=== PATIENT | female | born 1930 | race Two or more races ===

== ENCOUNTER 2017-08-20 07:25 | Outpatient (CLI) | payer OTHER ==
[~2017-08-20 07:25] MED LIST: ANTIVERT12.5 MG; CALTRATE-600600 MG PO; CARAFATE1 G; CITALOPRAM HBR20 MG; FORADIL12 MCG; MUCINEX600 MG; PREDNISOLONE5 MG PO; SEROQUEL50 MG
== END 2017-08-20 07:56 | disposition home or self-care (01) ==
LOC: MRI 07:25
DX: M05.79 Rheumatoid arthritis with rheumatoid factor of multiple sites without organ or systems involvement (principal); R51 Headache
CPT/HCPCS: 70553; A9579

== ENCOUNTER 2017-08-20 07:29 | Outpatient (CLI) | payer OTHER | END 2017-08-20 07:58 | disposition home or self-care (01) | LOC: TOM 07:29 | DX: M05.79 Rheumatoid arthritis with rheumatoid factor of multiple sites without organ or systems involvement (principal); R10.32 Left lower quadrant pain ==

== ENCOUNTER 2017-12-11 09:35 | Emergency (ER) | payer OTHER ==
[~2017-12-11] VITALS: Ht 160 cm; Wt 50.8 kg
[2017-12-11] MEDS ORDERED: NEURONTIN300 MG (10:07)
== END 2017-12-11 12:01 | disposition home or self-care (01) ==
LOC: ER 09:35
DX: R10.84 Generalized abdominal pain (principal); N39.0 Urinary tract infection, site not specified

== ENCOUNTER 2018-01-29 07:38 | Outpatient (CLI) | payer OTHER ==
[~2018-01-29 07:38] MED LIST changes: +NEURONTIN300 MG
== END 2018-01-29 07:43 | disposition home or self-care (01) ==
LOC: SONOGRAMA 07:38 → MAMO-SONO 08:15
DX: K82.8 Other specified diseases of gallbladder (principal); R10.9 Unspecified abdominal pain

== ENCOUNTER → 2018-03-26 | Outpatient (CLI) | payer OTHER | END | disposition home or self-care (01) | LOC: RX STUDY 09:35 | DX: K21.9 Gastro-esophageal reflux disease without esophagitis (principal) ==

== ENCOUNTER 2018-04-28 08:12 | Outpatient (CLI) | payer OTHER | END 2018-04-28 08:35 | disposition home or self-care (01) | LOC: MRI 08:12 | DX: K80.80 Other cholelithiasis without obstruction (principal); K80.50 Calculus of bile duct without cholangitis or cholecystitis without obstruction | CPT/HCPCS: 74181 ==

== ENCOUNTER 2018-07-22 10:15 | Day surgery (SDC) | payer OTHER | END 2018-07-22 14:55 | disposition home or self-care (01) | LOC: AMB-ENDOS 10:15 | DX: K80.50 Calculus of bile duct without cholangitis or cholecystitis without obstruction (principal) ==

== ENCOUNTER 2018-08-11 09:23 | Outpatient (CLI) | payer OTHER | END 2018-08-11 09:38 | disposition home or self-care (01) | LOC: MAMO-SONO 09:23 | DX: Z12.31 Encounter for screening mammogram for malignant neoplasm of breast (principal); Z87.898 Personal history of other specified conditions; N60.11 Diffuse cystic mastopathy of right breast; N60.12 Diffuse cystic mastopathy of left breast ==

== ENCOUNTER → 2018-09-29 | Emergency (ER) | payer OTHER ==
[~2018-09-29] VITALS: Ht 162.6 cm; Wt 47.2 kg
== END | disposition left against medical advice (07) ==
LOC: ER 07:50
DX: Z53.20 Procedure and treatment not carried out because of patient's decision for unspecified reasons (principal)

== ENCOUNTER 2018-12-21 07:39 | Outpatient (CLI) | payer OTHER | END 2018-12-21 07:49 | disposition home or self-care (01) | LOC: SONOGRAMA 07:39 → MAMO-SONO 07:45 → SONOGRAMA 07:49 | DX: N60.11 Diffuse cystic mastopathy of right breast (principal); N60.12 Diffuse cystic mastopathy of left breast; Z12.31 Encounter for screening mammogram for malignant neoplasm of breast ==

== ENCOUNTER 2019-03-15 09:23 | Outpatient (CLI) | payer OTHER | END 2019-03-15 09:24 | disposition home or self-care (01) | LOC: RAD 09:23 | DX: M05.79 Rheumatoid arthritis with rheumatoid factor of multiple sites without organ or systems involvement (principal) ==

== ENCOUNTER 2019-03-22 13:25 | Emergency (ER) | payer OTHER ==
[~2019-03-22] VITALS: Ht 160 cm; Wt 49.9 kg
[2019-03-22] MEDS ORDERED: METFORMIN HCL500 MG (14:15)
== END 2019-03-22 22:35 | disposition home or self-care (01) ==
LOC: ER 13:25
DX: I70.292 Other atherosclerosis of native arteries of extremities, left leg (principal)

== ENCOUNTER 2019-03-31 12:09 | Inpatient (IN) | payer OTHER ==
[~2019-03-31] VITALS: Ht 160 cm; Wt 49.9 kg
[~2019-03-31 12:09] MED LIST changes: +METFORMIN HCL500 MG
--- NOTE | 2019-03-31 12:27 | NUR ---
SE RECIBE AL PACIENTE ORIENTADO Y ALERTA EN ILA JEOVANNY ESFERAS. PACIENTE REFIERE QUE VIENE POR DOLOR EN EL SENAIT. PACIENTE REFIERE QUE TIENE EL DEDO DEL PIE COLOR RISHI. PACIENTE REFIERE QUE DANIEL DE SERIA QUIEN LA ATENDERIA POR ORDEN DE BRIANNA. RECUR. FAVOR DE NOTIFICAR AL MISMO.
--- NOTE | 2019-03-31 16:00 | NUR ---
PTE ES EVAPUADA POR MD,SE ORIENTA SOBRE ORDEN MEDICA,SE TESSIE MUESTRAS Y SE ENVIAN A LABORATORIO,SE CANALIZA Y COLOCA H/L PATENTE AREA GRANT DE EDEMA Y ENROJECIMIENTO,SE MANTIENE A PTE EN OBSERVACION POER CAMBIOS.
[2019-04-05] MEDS ORDERED: ZOLPIDEM TARTRAT5 MG PO (09:51)
[2019-04-05] MEDS ORDERED: MEGESTROL400 MG/10 PO (09:52)
[2019-04-05] MEDS ORDERED: ASA-EC81 MG PO (09:52)
[2019-04-05] MEDS ORDERED: ATORVASTATIN CA40 MG PO (09:55)
[2019-04-05] MEDS ORDERED: MELATONIN3 M3 PO (09:55)
[2019-04-05] MEDS ORDERED: PANTOPRAZOLE SO40 MG PO (09:56)
[2019-04-05] MEDS ORDERED: RANITIDINE HCL300 MG PO (09:56)
[2019-04-05] MEDS ORDERED: METFORMIN HCL500 M1 PO (09:56)
[2019-04-05] MEDS ORDERED: GABAPENTIN100 MG PO (09:58)
[2019-04-09] MEDS ORDERED: ASA-EC81 MG PO (15:11)
[2019-04-09] MEDS ORDERED: GABAPENTIN100 MG PO (15:11)
[2019-04-09] MEDS ORDERED: PANTOPRAZOLE SO40 MG PO (15:11)
[2019-04-09] MEDS ORDERED: PREDNISONE 5MG PO (15:11)
[2019-04-09] MEDS ORDERED: TRAM1TAB98 PO (15:11)
[2019-04-09] MEDS ORDERED: RESTORIL15 MG PO (15:11)
[2019-04-09] MEDS ORDERED: ATORVASTATIN CA40 MG PO (15:11)
== END 2019-04-09 17:42 | disposition home or self-care (01) | DRG 256 ==
LOC: ER 12:09 → SEC-K 18:59 → MEDJ 18:59
PROVIDERS: Specialist; ADMIT Internal Medicine Geriatric Medicine
PROC: B44HZZZ Ultrasonography of Bilateral Lower Extremity Arteries (ICD-10-PCS; 2019-03-31)
PROC: BQ3MZZZ Magnetic Resonance Imaging (MRI) of Left Foot (ICD-10-PCS; 2019-04-01)
PROC: 05HB33Z Insertion of Infusion Device into Right Basilic Vein, Percutaneous Approach (ICD-10-PCS; 2019-04-02)
PROC: 0Y6Y0Z0 Detachment at Left 5th Toe, Complete, Open Approach (ICD-10-PCS; principal; 2019-04-07 16:00)
DX: E11.52 Type 2 diabetes mellitus with diabetic peripheral angiopathy with gangrene (principal); E27.49 Other adrenocortical insufficiency; I96 Gangrene, not elsewhere classified; N39.0 Urinary tract infection, site not specified; T38.0X5A Adverse effect of glucocorticoids and synthetic analogues, initial encounter; F17.200 Nicotine dependence, unspecified, uncomplicated; L03.032 Cellulitis of left toe

== ENCOUNTER 2019-05-24 07:44 | Outpatient (CLI) | payer OTHER ==
[~2019-05-24 07:44] MED LIST changes: +ASA-EC81 MG PO; +ATORVASTATIN CA40 MG PO; +GABAPENTIN100 MG PO; +MEGESTROL400 MG/10 PO; +MELATONIN3 M3 PO; +METFORMIN HCL500 M1 PO; +PANTOPRAZOLE SO40 MG PO; +PREDNISONE 5MG PO; +RANITIDINE HCL300 MG PO; +RESTORIL15 MG PO; +TRAM1TAB98 PO; +ZOLPIDEM TARTRAT5 MG PO
== END 2019-05-24 08:17 | disposition home or self-care (01) ==
LOC: RAD 07:44
DX: M05.779 Rheumatoid arthritis with rheumatoid factor of unspecified ankle and foot without organ or systems involvement (principal)

== ENCOUNTER 2019-05-26 15:18 | Emergency (ER) | payer OTHER ==
[~2019-05-26] VITALS: Ht 160 cm; Wt 47.6 kg
== END 2019-05-26 20:56 | disposition home or self-care (01) ==
LOC: ER 15:18
DX: I96 Gangrene, not elsewhere classified (principal); L76.82 Other postprocedural complications of skin and subcutaneous tissue; Z89.422 Acquired absence of other left toe(s)

== ENCOUNTER 2019-06-01 14:51 | Inpatient (IN) | payer OTHER ==
[~2019-06-01] VITALS: Ht 160 cm; Wt 47.6 kg
[2019-06-07] MEDS ORDERED: GABAPENTIN100 MG PO (13:39)
[2019-06-07] MEDS ORDERED: CLOTRIMAZOLE10 MG MM (13:39)
[2019-06-07] MEDS ORDERED: PANTOPRAZOLE SO40 MG PO (13:39)
[2019-06-07] MEDS ORDERED: TRAM1TAB98 PO (13:39)
[2019-06-07] MEDS ORDERED: BACTRIM 400-801 EACH PO (13:39)
[2019-06-07] MEDS ORDERED: ASA-EC81 MG PO (13:39)
[2019-06-07] MEDS ORDERED: PREDNISONE 5MG PO (13:39)
[2019-06-07] MEDS ORDERED: ATORVASTATIN CA40 MG PO (13:39)
[2019-06-07] MEDS ORDERED: RESTORIL15 MG PO (13:39)
== END 2019-06-08 10:43 | disposition home health service (06) | DRG 256 ==
LOC: ER → SEC-K 06-02 06:38 → MEDJ 06-02 06:38
PROVIDERS: Specialist; ADMIT Internal Medicine Geriatric Medicine
PROC: B44HZZZ Ultrasonography of Bilateral Lower Extremity Arteries (ICD-10-PCS; 2019-06-02)
PROC: BQ34ZZZ Magnetic Resonance Imaging (MRI) of Left Femur (ICD-10-PCS; 2019-06-02)
PROC: 02HV33Z Insertion of Infusion Device into Superior Vena Cava, Percutaneous Approach (ICD-10-PCS; 2019-06-02)
PROC: 8E0ZXY6 Isolation (ICD-10-PCS; 2019-06-03)
PROC: 0Y6W0Z0 Detachment at Left 4th Toe, Complete, Open Approach (ICD-10-PCS; principal; 2019-06-04 14:00)
DX: E11.52 Type 2 diabetes mellitus with diabetic peripheral angiopathy with gangrene (principal); L97.425 Non-pressure chronic ulcer of left heel and midfoot with muscle involvement without evidence of necrosis; I96 Gangrene, not elsewhere classified; J44.1 Chronic obstructive pulmonary disease with (acute) exacerbation; E27.3 Drug-induced adrenocortical insufficiency; E11.621 Type 2 diabetes mellitus with foot ulcer; I70.0 Atherosclerosis of aorta; I77.1 Stricture of artery; A49.02 Methicillin resistant Staphylococcus aureus infection, unspecified site; F17.290 Nicotine dependence, other tobacco product, uncomplicated; G47.09 Other insomnia; T38.0X5A Adverse effect of glucocorticoids and synthetic analogues, initial encounter; Z79.4 Long term (current) use of insulin

== ENCOUNTER 2019-08-05 09:02 | Outpatient (CLI) | payer OTHER ==
[~2019-08-05 09:02] MED LIST changes: +BACTRIM 400-801 EACH PO; +CLOTRIMAZOLE10 MG MM
== END 2019-08-05 09:06 | disposition home or self-care (01) ==
LOC: RAD 09:02
DX: Z72.0 Tobacco use (principal)

== ENCOUNTER 2019-11-17 09:39 | Inpatient (IN) | payer OTHER ==
[~2019-11-17] VITALS: Ht 157.5 cm; Wt 40.4 kg
[2019-11-17] MEDS ORDERED: DICLOFENAC POTA50 MG (09:53)
[2019-11-25] MEDS ORDERED: GABAPENTIN300 M2 PO (08:09)
== END 2019-11-26 03:32 | disposition expired | DRG 871 ==
LOC: ER 09:39 → ICU 20:48
PROVIDERS: ADMIT Internal Medicine; ATTEND Internal Medicine
PROC: BW28ZZZ Computerized Tomography (CT Scan) of Head (ICD-10-PCS; principal; 2019-11-17)
PROC: BW40ZZZ Ultrasonography of Abdomen (ICD-10-PCS; 2019-11-17)
PROC: 4A033R1 Measurement of Arterial Saturation, Peripheral, Percutaneous Approach (ICD-10-PCS; 2019-11-17)
PROC: 8E0ZXY6 Isolation (ICD-10-PCS; 2019-11-17)
PROC: 0T9B70Z Drainage of Bladder with Drainage Device, Via Natural or Artificial Opening (ICD-10-PCS; 2019-11-17)
PROC: B24BZZZ Ultrasonography of Heart with Aorta (ICD-10-PCS; 2019-11-18)
PROC: BW21Y0Z Computerized Tomography (CT Scan) of Abdomen and Pelvis using Other Contrast, Unenhanced and Enhanced (ICD-10-PCS; 2019-11-21)
PROC: BB24Y0Z Computerized Tomography (CT Scan) of Bilateral Lungs using Other Contrast, Unenhanced and Enhanced (ICD-10-PCS; 2019-11-21)
PROC: 05HY33Z Insertion of Infusion Device into Upper Vein, Percutaneous Approach (ICD-10-PCS; 2019-11-22)
DX: A41.9 Sepsis, unspecified organism (principal); J10.00 Influenza due to other identified influenza virus with unspecified type of pneumonia; K83.1 Obstruction of bile duct; E27.49 Other adrenocortical insufficiency; J44.1 Chronic obstructive pulmonary disease with (acute) exacerbation; E87.3 Alkalosis; R09.02 Hypoxemia; Z66 Do not resuscitate; I87.2 Venous insufficiency (chronic) (peripheral); I95.9 Hypotension, unspecified; R53.1 Weakness; I48.0 Paroxysmal atrial fibrillation; E09.9 Drug or chemical induced diabetes mellitus without complications; N39.8 Other specified disorders of urinary system; Z79.4 Long term (current) use of insulin; Z79.01 Long term (current) use of anticoagulants; Z03.818 Encounter for observation for suspected exposure to other biological agents ruled out